=== PATIENT | male | born 1975 | race Caucasian/White ===

== ENCOUNTER 2025-08-14 20:11 | Inpatient (IN) | payer OTHER ==
[2025-08-14 20:21] VITALS: BMI 21.7
[2025-08-14] MEDS ORDERED: BENZOCAINE/MENTHOL (CHLORASEPTIC ) LOZENGE MM PRN (21:50)
[2025-08-14] MEDS ORDERED: IBUPROFEN 400 MG TABLET (FP) PO PRN (21:50)
[2025-08-14] MEDS ORDERED: MAGNESIUM HYDROX 2400MG/30ML ORAL SUSPENSION 30 ML CUP PO PRN (21:50)
[2025-08-14] MEDS ORDERED: DICYCLOMINE HCL 10 MG CAPSULE PO PRN (21:50)
[2025-08-14] MEDS ORDERED: BENZONATATE 200 MG CAPSULE PO PRN (21:50)
[2025-08-14] MEDS ORDERED: guaiFENesin 600 MG TABLET.ER (FP) PO PRN (21:50)
[2025-08-14] MEDS ORDERED: MAG HYDROX/AL HYDROX/SIMETH 30 ML UNIT-DOSE CUP PO PRN (21:50)
[2025-08-14] MEDS ORDERED: POLYETHYLENE GLYCOL (HEALTHYLAX) 3350 17 GM PACKET PO PRN (21:50)
[2025-08-14] MEDS ORDERED: NALOXONE (NARCAN) HCL 4 MG/0.1 ML SPRAY NS PRN (21:50)
[2025-08-14] MEDS ORDERED: LOPERAMIDE HCL 2 MG CAPSULE PO PRN (21:50)
[2025-08-14] MEDS ORDERED: ONDANSETRON *ODT* 4 MG TABLET SL PRN (21:50)
[2025-08-15] MEDS: MELATONIN 5 MG TABLETS PO SCH (02:42)
[2025-08-15] MEDS: THIAMINE 100 MG TABLET PO SCH (02:42)
[2025-08-15] MEDS: PRENATAL VITAMINS W/ FOLIC ACID TABLET (FP) PO SCH (10:13)
[2025-08-15 12:33] LABS: MCHC 32.4 g/dl (32.3-36.5); MEAN CELL VOLUME 82.3 fl (79.0-92.2); MEAN PLT VOLUME 10.4 fl (9.4-12.4); RDW 13.1 % (12.1-15.9)
[2025-08-15 13:36] LABS: GLUCOSE,RANDOM 80 mg/dL (74-106); TOT PROT 6.8 g/dl (6.4-8.2)
[2025-08-15 13:37] LABS: CO2 26 mmol/L (21-32)
[2025-08-15 13:39] LABS: ALK PHOS 94 U/L (40-150)
[2025-08-15 13:42] LABS: CREATININE 0.58 mg/dL (0.55-1.3); SGOT/AST 35 U/L (5-34); SGPT/ALT 48 U/L (0-55)
[2025-08-15] MEDS: POTASSIUM CHLORIDE ORAL LIQUID 20 MEQ/15 ML PO ONE ×2 (15:35→15:36)
[2025-08-15] MEDS: ACETAMINOPHEN 325 MG TABLET (FP) PO PRN (17:39)
[2025-08-15] MEDS: BISMUTH SUBSALICYLATE 524 MG/30 ML PO PRN (17:39)
[2025-08-15] MEDS: METHOCARBAMOL 500 MG TABLET PO PRN (22:40)
[2025-08-16] MEDS: IBUPROFEN 600 MG TABLET (FP) PO PRN (05:56)
[2025-08-16 13:41] LABS: MCHC 31.6 g/dl (32.3-36.5); MEAN CELL VOLUME 84.8 fl (79.0-92.2); MEAN PLT VOLUME 9.9 fl (9.4-12.4); RDW 13.2 % (12.1-15.9)
[2025-08-18] MEDS: hydrOXYzine PAMOATE 25 MG CAPSULE (FP) PO PRN (22:20)
[2025-08-20 09:09] VITALS: BP 135/84; PULSE 90; RESP 14; TEMP 96.9
== END 2025-08-20 09:23 | disposition home or self-care (01) | DRG 773 ==
LOC: YASAS 20:11 → Y3N 08-15 02:18
PROVIDERS: ADMIT Allergy & Immunology; ATTEND Counselor Addiction (Substance Use Disorder)
PROC: HZ2ZZZZ Detoxification Services for Substance Abuse Treatment (ICD-10-PCS; principal; 2025-08-14)
DX: F10.230 Alcohol dependence with withdrawal, uncomplicated (principal); F11.23 Opioid dependence with withdrawal; F14.20 Cocaine dependence, uncomplicated; F39 Unspecified mood [affective] disorder; Z59.00 Homelessness unspecified; G47.00 Insomnia, unspecified
CPT/HCPCS: 36415; 80053; 80305; 80307; 85025; 85027; 86780; 93005; 93010